=== PATIENT | male | born 1980 | race African-American/Black ===

== ENCOUNTER 2017-04-04 09:03 | Emergency (ER) | payer OTHER ==
[2017-04-04 09:04] VITALS: BP 119/68; PULSE 61; RESP 20; TEMP 98.5; O2SAT 94
[2017-04-04] MEDS ORDERED: MELO15TA20 PO (09:50)
[2017-04-04] MEDS ORDERED: PENI500T PO (09:50)
--- NOTE | 2017-04-04 09:54 | PD ---
HPI Chief Complaint: Oral / Dental Pain or Problem Time Seen by Provider: 09:34 Travel History International Travel<30 days: No Contact w/Intl Traveler<30days: No Traveled to known affect area: No History of Present Illness HPI 36-year-old male here with lip laceration and primary tooth fracture caused by car door. Injury occurred at work. He was struck in the face by a car door. No loss of consciousness. Patient is not anticoagulated. Denies headache, visual changes, neck pain. That didn't severity is moderate. No aggravating or alleviating factors. Tetanus immunization is up-to-date. PFS Past Medical History Medical History: Denies Significant Hx Past Surgical History Appendectomy: Yes Social History Alcohol Use: Yes (SOCIALLY) Tobacco Use: No Substance Use: No Allergies-Medications (Allergen,Severity, Reaction): Coded Allergies: No Known Allergies (Unverified , 04/04/17) Reported Meds & Prescriptions Reported Meds & Active Scripts Active Meloxicam 15 Mg Tab 15 Mg PO DAILY Penicillin V Potassium 500 Mg Tab 500 Mg PO Q6H 7 Days Review of Systems Except as stated in HPI: all other systems reviewed are Neg Physical Exam Narrative GENERAL: Alert male. No distress SKIN: Warm and dry. HEAD: Normocephalic. EYES: Pupils equal, round, reactive. EOMs intact. No injection or drainage. Mouth: 7MM gaping laceration to the left lip. It does not cross the vermilion border. No FB. fractured tooth # 10. Chipped tooth #23. NECK: Supple, trachea midline. No cervical midline tenderness Data Data Last Documented VS Vital Signs Date Time Temp Pulse Resp B/P (MAP) Pulse Ox O2 Delivery O2 Flow Rate FiO2 04/04/17 09:04 98.5 61 20 119/68 (85) 94 Orders Orders Ed Discharge Order (04/04/17 09:55) [facility] Medical Decision Making Medical Screen Exam Complete: Yes Emergency Medical Condition: Yes Differential Diagnosis Lip laceration, primary tooth fracture, contusion Narrative Course 36-year-old male here with lip laceration and primary tooth fracture caused by car door. Injury occurred at work. No loss of consciousness. Patient is not anticoagulated. He has a normal neurologic exam. Patient had a gaping lip laceration which was repaired. He will be put on antibiotics and instructed to follow-up with a dentist as soon as possible. Procedures Procedure Narrative LACERATION LOCATION: Left lower lip LENGTH: 7mm gaping NUMBER OF STITCHES/JACQUELINE: [1 loosely approximated] REPAIR: The area of the laceration was prepped with Betadine and sterilely draped. The laceration was infiltrated with [1 percent lidocaine]. The wound was copiously irrigated and explored without evidence of foreign body, tendon injury or neurovascular injury. The wound was closed using 5-0 fast gut. This was a single layer repair. Diagnosis Primary Impression: Lip laceration Qualified Codes: S01.511A - Laceration without foreign body of lip, initial encounter Additional Impression: Tooth fracture Qualified Codes: S02.5XXA - Fracture of tooth (traumatic), initial encounter for closed fracture Referrals: Dentist Additional Instructions: Antibiotics as prescribed. Make an appointment for follow-up with a dentist as soon as possible. Eats soft foods Scripts Meloxicam (Meloxicam) 15 Mg Tab 15 MG PO DAILY for Arthritis Pain, #30 TAB 0 Refills Prov: Mary Gonzalez 04/04/17 Penicillin V Potassium (Penicillin V Potassium) 500 Mg Tab 500 MG PO Q6H for Infection for 7 Days, #28 TAB 0 Refills Prov: Mary Gonzalez 04/04/17 Disposition: 01 DISCHARGE HOME Condition: Stable Mary Gonzalez Apr 04, 2017 09:54
== END 2017-04-04 10:25 | disposition home or self-care (01) ==
LOC: PHEFT 09:03
DX: S01.511A Laceration without foreign body of lip, initial encounter (principal); S02.5XXA Fracture of tooth (traumatic), initial encounter for closed fracture; W22.8XXA Striking against or struck by other objects, initial encounter; Y99.0 Civilian activity done for income or pay
CPT/HCPCS: 12011